=== PATIENT | male | born 1990 | race Hispanic/Latino ===

== ENCOUNTER 2024-08-12 11:25 | Emergency (ER) | payer SELFPAY ==
[~2024-08-12] VITALS: Ht 165.1 cm; Wt 78.2 kg
[2024-08-12] VITALS (11 sets, daily range): BP systolic 114–152; BP diastolic 75–107
[2024-08-12] MEDS ORDERED: ASPIRIN 81 MG/TAB PO ONE (11:40)
[2024-08-12] MEDS ORDERED: SODIUM CHLORIDE 0.9% 1,000 ML IV ONE (11:40)
[2024-08-12] MEDS ORDERED: LABETALOL HCL 20 MG/ 4 ML CARTRG IV ONE (11:40)
[2024-08-12] MEDS ORDERED: NITROGLYCERIN 0.4 MG/TAB SL ONE (11:40)
[2024-08-12 11:52] LABS: BASO% 0.4 % (0-3); EOS% 0.7 % (0-8); HEMATOCRIT 45.3 % (39.0-50.0); HEMOGLOBIN 16.1 g/dl (14.0-18.0); LYMPH% 30.6 % (15-41); MEAN CELL VOLUME 82.4 fL CALC (80.0-100.0); MEAN CORPUSCULAR HGB 29.3 pG CALC (26.0-32.0); MEAN CORPUSCULAR HGB CONC 35.5 g/dL CAL (32.0-36.0); MONO% 8.8 % (2-13); NEUT# 2.7 thou/uL (1.82-7.42); NEUT% 59.5 % (42-76); RED BLOOD COUNT 5.5 mill/uL (4.70-6.10); RED CELL DISTRI WIDTH 12.3 % (11.5-15.5)
[2024-08-12 12:04] LABS: ALBUMIN 4.6 g/dL (3.2-5.0); BILIRUBIN, TOTAL 0.5 mg/dL (0.2-1.3); CREATININE 0.9 mg/dL (0.7-1.3); POTASSIUM 3.3 mmol/l (3.5-5.1); TOTAL PROTEIN 8.5 g/dL (6.3-8.2)
[2024-08-12 12:07] LABS: PROTHROMBIN TIME 10.5 SECONDS (9.0-12.5)
[2024-08-12] MEDS ORDERED: Heparin SODIUM (Porcine) 5,000 UNITS/ML SDV IV ONE (12:40)
[2024-08-12] MEDS ORDERED: NITROGLYCERIN IN D5W 250 ML IV ONE (12:50)
[2024-08-12] MEDS ORDERED: SODIUM CHLORIDE 0.9% 500 ML IV PRN (12:55)
== END 2024-08-12 13:05 | DRG 311 ==
LOC: ED 11:25
PROVIDERS: Family Medicine
DX: I24.9 Acute ischemic heart disease, unspecified (principal); I44.7 Left bundle-branch block, unspecified
CPT/HCPCS: J1644; J2305